=== PATIENT | female | born 1990 | race Hispanic/Latino ===

== ENCOUNTER 2022-02-04 12:39 | Emergency (ER) | payer BC | END 2022-02-04 13:49 | disposition home or self-care (01) | LOC: CSHERS 12:39 | DX: K11.5 Sialolithiasis (principal); E11.9 Type 2 diabetes mellitus without complications | CPT/HCPCS: 99283 ==

== ENCOUNTER 2022-10-17 15:35 | Emergency (ER) | payer BC ==
[2022-10-17] MEDS ORDERED: Ketorolac Tromethamine 30 MG/ML VIAL ONE (16:24)
== END 2022-10-17 17:23 | disposition home or self-care (01) ==
LOC: CSHERS 15:35
DX: M54.50 Low back pain, unspecified (principal); G89.29 Other chronic pain; E11.9 Type 2 diabetes mellitus without complications
CPT/HCPCS: 72100; 96372; J1885